=== PATIENT | male | born 1955 | race Caucasian/White ===

== ENCOUNTER 2021-04-16 04:43 | Emergency (ER) | payer OTHER ==
[2021-04-16] MEDS ORDERED: AMLO10 PO (09:00)
[2021-04-16] MEDS ORDERED: JARDIANCE25 MG PO (09:01)
[2021-04-16] MEDS ORDERED: ATOR40TA PO (09:01)
[2021-04-16] MEDS ORDERED: LANTUS SOL100 UNIT/1 SC (09:02)
[2021-04-16] MEDS ORDERED: FAMO40 PO (09:02)
[2021-04-16] MEDS ORDERED: LISI20 PO (09:03)
[2021-04-16] MEDS ORDERED: METF500 PO (09:04)
== END 2021-04-16 05:30 | disposition left against medical advice (07) ==
LOC: ER 04:43
DX: Z53.21 Procedure and treatment not carried out due to patient leaving prior to being seen by health care provider (principal)

== ENCOUNTER 2021-04-16 08:49 | Emergency (ER) | payer OTHER ==
[~2021-04-16] VITALS: Ht 177.8 cm; Wt 72.6 kg
[2021-04-16] MEDS ORDERED: AMLO10 PO (09:00)
[2021-04-16] MEDS ORDERED: JARDIANCE25 MG PO (09:01)
[2021-04-16] MEDS ORDERED: ATOR40TA PO (09:01)
[2021-04-16] MEDS ORDERED: FAMO40 PO (09:02)
[2021-04-16] MEDS ORDERED: LANTUS SOL100 UNIT/1 SC (09:02)
[2021-04-16] MEDS ORDERED: LISI20 PO (09:03)
[2021-04-16] MEDS ORDERED: METF500 PO (09:04)
[2021-04-16 09:15] LABS: BASOPHILS ABSOLUTE AUTO 0.09 K/mm3 (0.00-0.23); BASOPHILS PERCENT AUTO 1 % (0-2); EOSINOPHILS ABSOLUTE AUTO 0.15 K/mm3 (0.00-0.68); EOSINOPHILS PERCENT AUTO 2 % (0-6); Hematocrit 46.3 % (37.0-53.0); Hemoglobin 15.7 g/dL (13.5-17.5); IMMATURE GRAN ABSOLUTE AUTO 0.04 K/mm3 (0.00-0.10); IMMATURE GRAN PERCENT AUTO 0 % (0-1); LYMPHOCYTES ABSOLUTE AUTO 2.33 K/mm3 (0.84-5.20); LYMPHOCYTES PERCENT AUTO 24 % (21-46); MONOCYTES ABSOLUTE AUTO 0.79 K/mm3 (0.16-1.47); MONOCYTES PERCENT AUTO 8 % (4-13); Mean Corpuscular HGB 29.5 pg (26.0-34.0); Mean Corpuscular HGB Conc 33.9 g/dL (31.5-36.5); Mean Corpuscular Volume 87 fL (80-100); Mean Platelet Volume 9.6 fL (9.1-12.4); NEUTROPHILS ABSOLUTE AUTO 6.45 K/mm3 (1.96-9.15); NEUTROPHILS PERCENT AUTO 66 % (41-73); Platelet Count 288 K/mm3 (150-400); RDW Standard Deviation 41.7 fL (35.1-46.3); Red Blood Cell Count 5.33 M/mm3 (4.30-5.90); White Blood Cell Count 9.85 K/mm3 (4.00-11.30)
[2021-04-16 09:29] LABS: Anion Gap 3 mmol/L (6-16); Blood Urea Nitrogen 18 mg/dL (8-24); Bun/Creatinine Ratio 17.8 (12.0-20.0); CO2, Blood 26 mmol/L (21-32); Calcium, Blood 8.8 mg/dL (8.5-10.1); Chloride, Blood 110 mmol/L (98-108); Creatinine, Blood 1.01 mg/dL (0.60-1.20); Glomerular Filtration Rate >60 (60-); Glucose, Blood 148 mg/dL (70-99); Potassium, Blood 4.1 mmol/L (3.5-5.5); Sodium, Blood 139 mmol/L (136-145); Troponin I <0.015 ng/mL (0.000-0.040)
== END 2021-04-16 11:24 | disposition home or self-care (01) ==
LOC: ER 08:49
PROVIDERS: Student in an Organized Health Care Education/Training Program
DX: R07.2 Precordial pain (principal); E11.9 Type 2 diabetes mellitus without complications; F17.210 Nicotine dependence, cigarettes, uncomplicated; I45.19 Other right bundle-branch block; Z79.4 Long term (current) use of insulin; Z79.899 Other long term (current) drug therapy
CPT/HCPCS: 36415; 71046; 80048; 84484; 85025; 93005; 93010; 99285-25; A9270

== ENCOUNTER 2022-03-03 12:00 | Emergency (ER) | payer OTHER ==
[~2022-03-03] VITALS: Ht 177.8 cm; Wt 73.9 kg
[~2022-03-03 12:00] MED LIST: AMLO10 PO; ATOR40TA PO; FAMO40 PO; JARDIANCE25 MG PO; LANTUS SOL100 UNIT/1 SC; LISI20 PO; METF500 PO
[2022-03-03 12:39] LABS: BASOPHILS ABSOLUTE AUTO 0.11 K/mm3 (0.00-0.23); BASOPHILS PERCENT AUTO 1 % (0-2); EOSINOPHILS ABSOLUTE AUTO 0.15 K/mm3 (0.00-0.68); EOSINOPHILS PERCENT AUTO 1 % (0-6); Hematocrit 48.2 % (37.0-53.0); Hemoglobin 16.7 g/dL (13.5-17.5); IMMATURE GRAN PERCENT AUTO 1 % (0-1); LYMPHOCYTES ABSOLUTE AUTO 2.75 K/mm3 (0.84-5.20); LYMPHOCYTES PERCENT AUTO 19 % (21-46); MONOCYTES ABSOLUTE AUTO 1.19 K/mm3 (0.16-1.47); MONOCYTES PERCENT AUTO 8 % (4-13); Mean Corpuscular HGB 29.5 pg (26.0-34.0); Mean Corpuscular HGB Conc 34.6 g/dL (31.5-36.5); Mean Corpuscular Volume 85 fL (80-100); Mean Platelet Volume 9.8 fL (9.1-12.4); NEUTROPHILS ABSOLUTE AUTO 10.53 K/mm3 (1.96-9.15); NEUTROPHILS PERCENT AUTO 71 % (41-73); Platelet Count 338 K/mm3 (150-400); RDW Coefficient Variation 12.6 % (11.7-14.2); RDW Standard Deviation 38.7 fL (35.1-46.3); Red Blood Cell Count 5.66 M/mm3 (4.30-5.90); White Blood Cell Count 14.83 K/mm3 (4.00-11.30)
[2022-03-03 12:54] LABS: Albumin, Blood 3.6 g/dL (3.4-5.0); Albumin/Globulin Ratio 0.9 (0.8-1.8); Bilirubin, Total 0.4 mg/dL (0.1-1.0); Calcium, Blood 9.3 mg/dL (8.5-10.1); Globulin, Blood 4.2 g/dL (2.2-4.0); Phosphorus, Blood 3.4 mg/dL (2.5-4.9); Potassium, Blood 4.4 mmol/L (3.5-5.5); Total Protein, Blood 7.8 g/dL (6.4-8.2)
== END 2022-03-03 16:06 | disposition home or self-care (01) ==
LOC: ER 12:00
PROVIDERS: Physician Assistant
DX: R25.1 Tremor, unspecified (principal); M62.838 Other muscle spasm; E11.9 Type 2 diabetes mellitus without complications; F17.210 Nicotine dependence, cigarettes, uncomplicated; Z79.4 Long term (current) use of insulin; Z79.899 Other long term (current) drug therapy
CPT/HCPCS: 36415; 80053; 83735; 84100; 85025

== ENCOUNTER 2022-11-18 09:58 | Observation (INO) | payer OTHER ==
[~2022-11-18] VITALS: Ht 177.8 cm; Wt 78.5 kg
[2022-11-18 10:31] LABS: BASOPHILS ABSOLUTE AUTO 0.08 K/mm3 (0.00-0.23); BASOPHILS PERCENT AUTO 1 % (0-2); EOSINOPHILS ABSOLUTE AUTO 0.12 K/mm3 (0.00-0.68); EOSINOPHILS PERCENT AUTO 1 % (0-6); Hematocrit 45.6 % (37.0-53.0); Hemoglobin 15.9 g/dL (13.5-17.5); IMMATURE GRAN ABSOLUTE AUTO 0.06 K/mm3 (0.00-0.10); IMMATURE GRAN PERCENT AUTO 1 % (0-1); LYMPHOCYTES ABSOLUTE AUTO 2.13 K/mm3 (0.84-5.20); LYMPHOCYTES PERCENT AUTO 22 % (21-46); MONOCYTES PERCENT AUTO 7 % (4-13); Mean Corpuscular HGB 29.3 pg (26.0-34.0); Mean Corpuscular HGB Conc 34.9 g/dL (31.5-36.5); Mean Corpuscular Volume 84 fL (80-100); Mean Platelet Volume 9.8 fL (9.1-12.4); NEUTROPHILS ABSOLUTE AUTO 6.84 K/mm3 (1.96-9.15); NEUTROPHILS PERCENT AUTO 69 % (41-73); Platelet Count 289 K/mm3 (150-400); RDW Coefficient Variation 12.9 % (11.7-14.2); RDW Standard Deviation 39.8 fL (35.1-46.3); Red Blood Cell Count 5.42 M/mm3 (4.30-5.90); White Blood Cell Count 9.93 K/mm3 (4.00-11.30)
[2022-11-18 10:44] LABS: Albumin, Blood 3.5 g/dL (3.4-5.0); Albumin/Globulin Ratio 0.9 (0.8-1.8); Bilirubin, Total 0.4 mg/dL (0.1-1.0); Bun/Creatinine Ratio 27.5 (12.0-20.0); Creatinine, Blood 0.73 mg/dL (0.60-1.20); Globulin, Blood 3.8 g/dL (2.2-4.0); Potassium, Blood 4.1 mmol/L (3.5-5.5); Total Protein, Blood 7.3 g/dL (6.4-8.2)
[2022-11-18] MEDS ORDERED: LORA1 PO (11:26)
[2022-11-18] MEDS ORDERED: TRAM50 PO (11:28)
[2022-11-18] MEDS ORDERED: METO25 PO (11:29)
[2022-11-18] MEDS ORDERED: Flonase 0.05% N16 GM (11:30)
[2022-11-18] MEDS ORDERED: Aspir 8181 MG PO (11:30)
[2022-11-18] MEDS ORDERED: ROSU10TA PO (11:31)
[2022-11-18] MEDS ORDERED: LEVSOD100 PO (11:32)
--- NOTE | 2022-11-18 19:04 | NUR ---
SHIFT SUMMARY/ADMIT PT ADMITTED AT 1542. PT ORIENTED TO ROOM AT THIS TIME. PT INFORMED THIS IS A TOBACCO FREE CAMPUS AND SMOKING IS NOT PERMITTED. PT STATES HE UNDERSTANDS AND DENIES A NEED FOR A NICOTINE PATCH. NS RUNNING 100ML/HR. PT DENIES CP/PRESSURE. CALL LIGHT IN REACH AND VISITING WITH HIS BROTHER AT THIS TIME. VS REVIEWED.
[2022-11-19] MEDS ORDERED: ERGO50000 PO (01:13)
[2022-11-19] MEDS ORDERED: Acetaminophen650 M1 PO (01:16)
[2022-11-19] MEDS ORDERED: Vitamin B-12100 MCG PO (01:18)
--- NOTE | 2022-11-19 04:26 | NUR ---
SHIFT SUMMARY ADMITTED FOR RIGHT-SIDED WEAKNESS. FULL CODE. NEUROLOGICAL CONSULT IS DR. MCKEON. TELEMETRY: MARGIE @ 57 BPM. AC CBG'S. ADA DIET. HX OF TIA. HE IS A&O X4, INDEPENDENT. STATES ONLY RIGHT FINGERTIPS ARE NUMB AT THIS TIME
[2022-11-19 05:25] LABS: Mean Corpuscular HGB 29.8 pg (26.0-34.0); Mean Corpuscular HGB Conc 35.7 g/dL (31.5-36.5); Mean Corpuscular Volume 83 fL (80-100); Mean Platelet Volume 9.9 fL (9.1-12.4); Platelet Count 258 K/mm3 (150-400); RDW Coefficient Variation 12.7 % (11.7-14.2); RDW Standard Deviation 38.5 fL (35.1-46.3); Red Blood Cell Count 5.04 M/mm3 (4.30-5.90); White Blood Cell Count 10.08 K/mm3 (4.00-11.30)
[2022-11-19 05:46] LABS: Bun/Creatinine Ratio 23.9 (12.0-20.0); Calcium, Blood 8.7 mg/dL (8.5-10.1); Creatinine, Blood 0.75 mg/dL (0.60-1.20); Potassium, Blood 3.7 mmol/L (3.5-5.5)
[2022-11-19] MEDS ORDERED: AMLO5 PO (13:53)
[2022-11-19] MEDS ORDERED: LISI20 PO (13:54)
[2022-11-19] MEDS ORDERED: CLOP75 PO (13:54)
--- NOTE | 2022-11-19 16:17 | NUR ---
PT AWAKE DURING SHIFT REPORT THIS AM. PLEASANT AND CO-OP. PT ADMITTED FOR R SIDE WEAKNESS; PT REPORTING SYMPTOMS RESLOVED. PT WANTING TO GO HOME THIS AM. DR JAMES IN LATER TO SEE PT AND DISCUSS PLAN OF CARE. CAROTID DUPLEX ORDERED. DR JAMES NOTIFIED WHEN COMPLETE AND RESULTS BACK. PT CLEAR FOR D/C HOME. PT UP INDEPENDENTLY IN AND LATER IN HALLS. PT'S MOM IN TO VISIT AND REMAINED UNTIL D/C. [facility] PER [facility] REQUEST. D/C INSTRUCTIONS REVIEW WITH PT; VERBALIZED UNDERSTANDING. IV SITE D/C'D WNL'S. PT TAKEN DOWN TO MOM'S CAR VIA W/C, WITH BELONGINGS.
== END 2022-11-19 14:10 | disposition home or self-care (01) ==
LOC: ER 09:58 → MEDS 09:59
PROVIDERS: Nurse Practitioner Acute Care; Physician Assistant; ADMIT Internal Medicine
DX: R53.1 Weakness (principal); E11.9 Type 2 diabetes mellitus without complications; Z79.4 Long term (current) use of insulin; I10 Essential (primary) hypertension; K21.9 Gastro-esophageal reflux disease without esophagitis; E03.9 Hypothyroidism, unspecified; J44.9 Chronic obstructive pulmonary disease, unspecified; Z79.84 Long term (current) use of oral hypoglycemic drugs; F17.210 Nicotine dependence, cigarettes, uncomplicated; Z86.73 Personal history of transient ischemic attack (TIA), and cerebral infarction without residual deficits
CPT/HCPCS: 36415; 70450; 70551; 71046; 80048; 80053; 82947; 84484; 85025; 85027; 93005; 93010; 93880; 94640; 94664; 94760; 97112; 97162; 99285-25; A9270; G0378; J1650; J1815; J7030